=== PATIENT | female | born 1995 | race Caucasian/White ===

== ENCOUNTER → 2020-04-21 | Outpatient (CLI) | payer BC | END | disposition home or self-care (01) | LOC: LABWHC1 12:41 | PROVIDERS: ATTEND Emergency Medicine | DX: Z20.828 Contact with and (suspected) exposure to other viral communicable diseases (principal) | CPT/HCPCS: U0003; C9803 ==

== ENCOUNTER → 2020-07-20 | Outpatient (CLI) | payer BC | END | disposition home or self-care (01) | LOC: LABWHC1 13:00 | PROVIDERS: ATTEND Emergency Medicine | DX: Z20.822 Contact with and (suspected) exposure to COVID-19 (principal) | CPT/HCPCS: U0003; C9803 ==

== ENCOUNTER → 2020-08-13 | Outpatient (CLI) | payer BC | END | disposition home or self-care (01) | LOC: LABWHC1 15:56 | PROVIDERS: ATTEND Emergency Medicine | DX: Z20.822 Contact with and (suspected) exposure to COVID-19 (principal) | CPT/HCPCS: U0003; C9803 ==

== ENCOUNTER → 2020-08-19 | Outpatient (CLI) | payer BC ==
--- NOTE | 2020-08-19 17:00 | US ---
EXAMINATION TYPE: US OB<=14wk fetus twins/travag DATE OF EXAM: 08/19/2020 COMPARISON: NONE CLINICAL HISTORY: 24-year-old female O76 ABNORMAL OR ABSENT HEART TONES AT DOCTORS OFFICE. EXAM PERFORMED: Transvaginal (TV) and Transabdominal (TA) FINDINGS: EXAM MEASUREMENTS: GESTATIONAL AGE / DATING Physician Established: (11 weeks/3 days) EDC: 03/07/2021 Dates by LMP: (11 weeks/3 days) EDC: 03/07/2021 Dates by First Scan: No previous, this is first scan ( Dates by Current Scan for Baby A: (7 weeks/0 d ays) Dates by Current Scan for Baby B: (7 weeks/5 days) MATERNAL ANATOMY Uterus: 10.0 x 8.8 x 7.6 cm Right Ovary: 2.9 x 2.0 x 2.1 cm Left Ovary: Obscured by bowel gas. Post CDS / Adnexa: wnl Presence of free fluid: no Presence of corpus luteal cyst: no Presence of subchorionic bleed: no Presence of two separate gestational sacs: no No yolk sacs are identified. Suspect monochorionic diamnionic . ASSISTANT PROFESSOR OF SURGERY NOTES: GESTATION / SURVEY TWIN A CRL: 1.0 cm 7(wks0/days) Heart Rate No heart tones seen. IUP: Demise TWIN B CRL: 1.39 cm (7wks5/days) Heart Rate: No tones seen. IUP: Demise IMPRESSION: Twin gestations (suspect monochorionic diamniotic ). No yolk sac identified. Gestational age of 7 weeks 5 days and 7 weeks 0 days by CRL (discordant with age by LMP 11 weeks 3 days). Unable to identify heart tones. Color Doppler was also utilized. Findings highly suggestive of mavis se.
== END | disposition home or self-care (01) ==
LOC: RADUSWWP 16:09
PROVIDERS: ATTEND Obstetrics & Gynecology
DX: O76 Abnormality in fetal heart rate and rhythm complicating labor and delivery (principal); Z3A.01 Less than 8 weeks gestation of pregnancy
CPT/HCPCS: 76801; 76802; 76817

== ENCOUNTER 2020-08-23 05:36 | Day surgery (SDC) | payer BC ==
[2020-08-20 11:44] VITALS: BMI 27.3
[~2020-08-23 05:36] MED LIST: Pre Op ABX Message 1 EACH MISC MISCELLANE ONE
[2020-08-23] MEDS ORDERED: LACTATED RINGERS 1,000 ML IV ONE (06:13)
[2020-08-23] MEDS ORDERED: LIDOCAINE 1% (10MG/ML) FOR IV START INTRADERMA ONE (06:25)
[2020-08-23] MEDS ORDERED: ONDANSETRON 4 MG/2 ML VIAL ONE (06:26)
[2020-08-23] MEDS ORDERED: ONDANSETRON 4 MG/2 ML VIAL IVP ONE (06:28)
[2020-08-23] MEDS ORDERED: DEXAMETHASONE SOD PHOSPHATE 4 MG/ML 1 ML VIAL IVP ONE (06:29)
[2020-08-23] MEDS ORDERED: SCOPOLAMINE 1.5MG/72HR PATCH TRANSDERM ONE (06:29)
[2020-08-23 06:35] LABS: Basophils % (A) 0 %; Eosinophils # (A) 0.1 k/uL (0-0.7); Eosinophils % (A) 2 %; HGB 13.8 gm/dL (11.4-16.0); Lymphocytes # (A) 1.8 k/uL (1.0-4.8); Lymphocytes % (A) 28 %; MCH 31.6 pg (25.0-35.0); MCHC 33.6 g/dL (31.0-37.0); MCV 93.8 fL (80.0-100.0); Monocytes # (A) 0.2 k/uL (0-1.0); Monocytes % (A) 4 %; Neutrophils # (A) 4.3 k/uL (1.3-7.7); Neutrophils % (A) 65 %; Platelet Count 253 k/uL (150-450); RBC 4.37 m/uL (3.80-5.40); RDW 12.9 % (11.5-15.5); WBC 6.6 k/uL (3.8-10.6)
[2020-08-23] MEDS ORDERED: LIDOCAINE 1% INJ 10MG/ML (20 ML MDV) ONE (06:50)
[2020-08-23] MEDS ORDERED: METHYLERGONOVINE 0.2 MG/ML 1 ML AMP ONE (06:50)
[2020-08-23] MEDS ORDERED: MIDAZOLAM 2 MG/2 ML VIAL ONE (06:50)
[2020-08-23] MEDS ORDERED: PROPOFOL 10 MG/ML 20 ML VIAL IV ONE (06:50)
[2020-08-23] MEDS ORDERED: fentaNYL (PF) 50 MCG/ML 2 ML AMP ONE (06:50)
[2020-08-23 07:41] VITALS: RESP 16; TEMP 97.6
--- NOTE | 2020-08-23 07:43 | P.OP ---
Date of Procedure: 08/23/20 Preoperative Diagnosis: Missed AB, twin gestation, 11-4/7 weeks Postoperative Diagnosis: Same Procedure(s) Performed: Suction D&C Anesthesia: NICHOLEA Surgeon: Miriam Gilmore Estimated Blood Loss (ml): 200 IV fluids (ml): 400 Urine output (ml): 50 Pathology: other (Intrauterine contents) Condition: stable Disposition: PACU Operative Findings: Uterus sounded to 15 cm, anteverted anteflexed, adnexa negative bilaterally. Description of Procedure: Patient is brought to the operating suite where general anesthetic is administered without difficulty. She's placed in the dorsolithotomy position. The appropriate timeout was performed to assure proper patient and procedural identification. Antibiotics are not deemed necessary. Blood type is pending at time of this dictation. The cervix, vagina, perineal bodies are all prepped and draped in the usual sterile fashion. Bladder is drained for approximately 50 mL of clear yellow urine. Examination under anesthesia reveals an anteverted uterus of approximately 12-13 weeks' size. Weighted speculum was placed into the vagina. Anterior lip of the cervix is grasped with an Allis clamp. The cervix was gently and systematically dilated using Hanks dilators. A #9 curved curette is placed to the dome of the fundus and under appropriate suction pressures the uterus is curettaged thoroughly. A medium sharp curette is used to assure that the cavity is negative. The curved curet is once again placed, cavity is once again swept clean and is emptied of all tissues. Bleeding is slightly brisk, Methergine IM is given 1 with good results. Instrumentation is removed from the vagina. Uterus is massaged, firm and mobile. All sponge needle and instrument counts are correct. Patient is brought back to the recovery room in very good condition with stable vital signs, including a pulse of 88, 99% O2 saturation, blood pressure 119/46. Blood type is still pending, broke and will be given if Rh- status is found. Patient will follow-up with me in the office in 2 weeks. Postoperative instructions are given.
[2020-08-23] MEDS ORDERED: HYDROmorphone 0.5 MG/0.5 ML SYRINGE IVP ONE (08:06)
[2020-08-23 09:15] VITALS: BP 108/67; PULSE 83
== END 2020-08-23 09:30 | disposition home or self-care (01) ==
LOC: OR 05:36
PROVIDERS: ATTEND Obstetrics & Gynecology
DX: O02.1 Missed abortion (principal)
CPT/HCPCS: 86900; 86901; 88305; 85025; 86850; 59820; J2250; J1100; J2210; J2405; J2001; J3010; J2704; J1170

== ENCOUNTER → 2021-02-04 | Outpatient (CLI) | payer BC | END | disposition home or self-care (01) | LOC: LABWHC1 12:46 | PROVIDERS: ATTEND Obstetrics & Gynecology | DX: Z34.81 Encounter for supervision of other normal pregnancy, first trimester (principal); Z3A.00 Weeks of gestation of pregnancy not specified | CPT/HCPCS: 36415; 82950 ==

== ENCOUNTER 2021-08-23 04:00 | Inpatient (IN) | payer BC ==
[2021-08-23] MEDS ORDERED: OXYTOCIN 10 UNIT/ML 1 ML VIAL IM PRN (04:13)
[2021-08-23] MEDS ORDERED: TERBUTALINE 1 MG/ML VIAL SQ PRN (04:13)
[2021-08-23] MEDS ORDERED: METHYLERGONOVINE 0.2 MG/ML 1 ML AMP IM PRN (04:13)
[2021-08-23] MEDS ORDERED: CARBOPROST TROMETHAMINE 250 MCG/ML 1 ML AMP IM PRN (04:13)
[2021-08-23] MEDS ORDERED: LIDOCAINE 1% (PF) 10 MG/ML (30 ML SDV) SQ PRN (04:13)
[2021-08-23] MEDS ORDERED: OXYTOCIN 30 UNITS/500 ML NS 30 UNIT in SALINE 1 500ML.BAG IV SCH ×2 (04:15→21:30)
[2021-08-23] MEDS: LACTATED RINGERS 1,000 ML IV SCH ×4 (04:24→22:54)
[2021-08-23 05:27] LABS: Basophils % (A) 0 %; Eosinophils # (A) 0.1 k/uL (0-0.7); Eosinophils % (A) 1 %; HCT 36.2 % (34.0-46.0); Lymphocytes # (A) 1.6 k/uL (1.0-4.8); Lymphocytes % (A) 18 %; MCH 33.6 pg (25.0-35.0); MCHC 33.1 g/dL (31.0-37.0); MCV 101.3 fL (80.0-100.0); Macrocytosis Slight; Mean Platelet Volume 8.5; Monocytes # (A) 0.4 k/uL (0-1.0); Monocytes % (A) 5 %; Neutrophils # (A) 6.7 k/uL (1.3-7.7); Neutrophils % (A) 75 %; Platelet Count 190 k/uL (150-450); RBC 3.57 m/uL (3.80-5.40); RDW 13.5 % (11.5-15.5); WBC 8.9 k/uL (3.8-10.6)
--- NOTE | 2021-08-23 06:53 | P.HPOB ---
History of Present Illness H&P Date: 08/23/21 Chief Complaint: My water broke at 3:30 this morning This is a 25-year-old 2 para 0010 EDC 08/18/2021 at 40-5/7 weeks who was initially scheduled for induction this morning for postdates , but presented with spontaneous amniorrhexis at 0330 hours, clear fluid. She is having rare mild uterine contractions. Fetus is been active throughout the . Past surgical history significant for suction D&C for missed AB in 2020, breast reduction 2009. Current medications vitamins daily, baby aspirin daily. ALLERGIES none known. Past medical history significant for exercise-induced asthma. Family history significant for asthma. Social history patient has never been a smoker, she denies alcohol or drug use. She is , she works for a local [employer]. history is significant for blood type O+, rubella status immune. VDRL testing, hepatitis B surface antigen, group B strep cultures, gonorrhea and chlamydia cultures, urine culture negative. One-hour Glucola within normal limits. On exam patient is 5 foot 7 inches, 229 pounds, blood pressure 131/71. Vital signs are stable and she is afebrile. The general physical exam is within normal limits. Cervix is 2-3 cm dilated, 60% effaced, -2 station, vertex pre sentation. A small fore bag is ruptured for clear fluid. heart rate is consistent with reactive NST. Uterine contractions are occurring irregularly every 2-5 minutes apart of mild intensity. Impression: 40-5/7 weeks intrauterine , here for early spontaneous labor. All signs reassuring. Plan: Oxytocin augmentation has started. Analgesic options have been reviewed. Continue close maternal and surveillance. Anticipate normal spontaneous vaginal delivery. Review of Systems Constitutional: Reports as per HPI Past Medical History Past Medical History: Asthma Additional Past Medical History / Comment(s): sports induced asthma, miscarriage History of Any Multi-Drug Resistant Organisms: None Reported Past Surgical History: Breast Surgery Additional Past Surgical History / Comment(s): breast reduction, D&C Past Anesthesia/Blood Transfusion Reactions: No Reported Reaction Past Psychological History: No Psychological Hx Reported Smoking Status: Never smoker Past Alcohol Use History: Occasional Additional Past Alcohol Use History / Comment(s): not during Past Drug Use History: None Reported - Past Family History Mother Family Medical History: No Reported History Medications and Allergies Home Medications Medication Instructions Recorded Confirmed Type Pnv,Calcium 72/Iron/Folic Acid 1 each PO DAILY 08/20/20 08/23/21 History [ Plus Tablet] Allergies Allergy/AdvReac Type Severity Reaction Status Date / Time No Known Allergies Allergy Verified 08/23/21 04:11 Exam Vital Signs Temp Pulse Resp BP 08/23/21 04:11 97.6 F 86 17 131/71 Intake and Output 08/22/21 08/22/21 08/23/21 14:59 22:59 06:59 Other: # Voids 1 Weight 103.873 kg See dictation under HPI please Results Result Diagrams: 08/23/21 05:00 Abnormal Lab Results - Last 24 Hours (Table) 08/23/21 Range/Units 05:00 RBC 3.57 L (3.80-5.40) m/uL MCV 101.3 H (80.0-100.0) fL Assessment and Plan Assessment: 40-5/7 weeks intrauterine , scheduled for induction but here in spontaneous labor. All signs reassuring. Plan: Oxytocin augmentation per hospital protocol. Close maternal and surveillance. Analgesic options reviewed. Anticipate normal spontaneous vaginal delivery. Time with Patient: Less than 30
[2021-08-23] MEDS ORDERED: ROPIVACAINE 100 MG, fentaNYL (PF). 200 MCG in SODIUM CHLORIDE 0.9% 76 ML EPIDURAL ONE (10:00)
[2021-08-23] MEDS ORDERED: PENICILLIN G POTASSIUM 5,000,000 UNIT in DEXTROSE 5% IN WATER 100 ML IVPB STA ×2 (16:32)
[2021-08-23] MEDS ORDERED: PENICILLIN G POTASSIUM 2,500,000 UNIT in DEXTROSE 5% IN WATER 100 ML IVPB SCH ×4 (16:45→21:00)
[2021-08-23] MEDS ORDERED: CITRIC ACID-SODIUM CITRATE 15 ML CUP PO ONE (21:09)
[2021-08-23] MEDS ORDERED: diphenhydrAMINE 25 MG CAP PO PRN (21:25)
[2021-08-23] MEDS ORDERED: SIMETHICONE 80 MG CHEWABLE PO PRN (21:25)
[2021-08-23] MEDS ORDERED: NALOXONE 0.4 MG/ML 1 ML VIAL IV PRN (21:25)
[2021-08-23] MEDS ORDERED: diphenhydrAMINE 50 MG CAP PO PRN (21:25)
[2021-08-23] MEDS ORDERED: diphenhydrAMINE 50 MG/ML 1 ML VIAL IVP PRN ×2 (21:25)
[2021-08-23] MEDS ORDERED: ONDANSETRON 4 MG/2 ML VIAL IVP PRN (21:25)
[2021-08-23] MEDS ORDERED: METOCLOPRAMIDE 5 MG/ML 2 ML VIAL IVP PRN (21:25)
[2021-08-23] MEDS ORDERED: ZOLPIDEM 5 MG TAB PO PRN (21:25)
[2021-08-23 23:01] VITALS: RESP 16
[2021-08-24] MEDS: LACTATED RINGERS 1,000 ML IV SCH (01:20)
[2021-08-24] MEDS: ACETAMINOPHEN TAB 500 MG TAB PO SCH ×4 (02:42→18:24)
[2021-08-24] MEDS: KETOROLAC 15 MG/ML 1 ML VIAL IVP SCH ×3 (02:42→14:58)
[2021-08-24] MEDS: IBUPROFEN 600 MG TAB PO SCH ×2 (05:38→12:41)
[2021-08-24 07:14] LABS: Basophils % (A) 0 %; Eosinophils % (A) 0 %; HCT 31.6 % (34.0-46.0); HGB 10.6 gm/dL (11.4-16.0); Lymphocytes # (A) 1.2 k/uL (1.0-4.8); Lymphocytes % (A) 8 %; MCH 34.6 pg (25.0-35.0); MCHC 33.6 g/dL (31.0-37.0); MCV 103.2 fL (80.0-100.0); Macrocytosis Slight; Mean Platelet Volume 8.3; Monocytes # (A) 0.7 k/uL (0-1.0); Monocytes % (A) 5 %; Neutrophils # (A) 12.6 k/uL (1.3-7.7); Neutrophils % (A) 86 %; Platelet Count 196 k/uL (150-450); RBC 3.06 m/uL (3.80-5.40); RDW 14.2 % (11.5-15.5); WBC 14.7 k/uL (3.8-10.6)
--- NOTE | 2021-08-24 07:35 | P.PN ---
Progress Note - Text Progress Note Date: 08/24/21 (312) Anesthesia Postop day 1 Subjective: Status Post section with Duramorph. Patient seen and examined. Doing well without complaint. VAS 0. Denies nausea or vomiting. Mild pruritustolerable. Afebrile. Gross lower extremity strength intact. . Without apparent anesthetic complications. Objective: Vital signs reviewed Heart: Regular Rate Lungs: Good chest excursion Abdomen: Appears nondistended Assessment: Status post with Duramorph postop day 1 Plan: Continue current care with your medical management. Anticipated and the Duramorph around 9 PM tonight, you may see increased pain needs around this time.
[2021-08-24] MEDS: SENNOSIDES-DOCUSATE SODIUM 1 EACH TAB PO SCH ×2 (07:51→20:05)
--- NOTE | 2021-08-24 08:10 | P.OP ---
Date of Procedure: 08/23/21 Preoperative Diagnosis: 40-5/7 weeks intrauterine , meconium-stained fluid, arrest of descent in the second stage, nonreassuring heart tones. Postoperative Diagnosis: Same, right occiput transverse, nuchal cord 1, liveborn male infant Procedure(s) Performed: primary low transverse section Anesthesia: spinal Surgeon: Miriam Gilmore Rug Layer #1: Shona Tao Estimated Blood Loss (ml): 350 IV fluids (ml): 1,100 Urine output (ml): 100 Pathology: other (Placenta) Condition: stable Disposition: PACU Operative Findings: Liveborn male infant, scores 7 and 9, 8 lbs. 5 oz., 3800 g, nuchal cord 1, right occiput transverse arrest Description of Procedure: Patient arrived with spontaneous amniorrhexis which occurred at 033 hours, previously scheduled for induction for postdates. is remarkable for blood type O positive, rubella status immune, group B strep cultures negative. Please see my dictated history and physical for details. Oxytocin was started and titrated per hospital protocol. Epidural was placed. 12 hours after spontaneous amniorrhexis 5 million units of penicillin G was given. Patient progressed to completely dilated and began the second stage of labor. However after almost 2 hours of pushing no descent was noted, and at this time late decelerations were noted. Decision was made to proceed with primary low transverse section. Wall catheter is placed, vaginal prep done. 2 g of Ancef were given. Patient is placed in the dorsal supine position and the abdomen is prepped and draped in the usual sterile fashion after a spinal with Duramorph is placed. The appropriate timeout is performed to assure proper patient and procedural identification. Analgesia is checked and noted to be adequate. A low transverse skin incision is made in this is carried down through the subcutaneous tissue which is approximately 6 cm deep. Fascia is scored, isolated, extended bilaterally with curved Piedra scissors. Peritoneum is next identified and incised, there is no bowel or bladder involvement. The bladder blade is placed over the dome of the bladder and at all times the bladder is Well from the operative field to avoid bladder and/or ureteral injury. A low transverse uterine incision is made. This is carried down through the myometrium then extended bluntly. Meconium-stained fluid was encountered. 's head delivered in the right occiput transverse position. There was a nuchal cord 1 that was reduced. The oropharynx, nasopharynx, and external nares were then thoroughly bulb suctioned. Patient was officially delivered of a liveborn male infant at 2030 hours. Umbilical cord was doubly clamped and ligated, he was handed to waiting nurses for evaluation where scores of 7 and 9 at one and 5 minutes respectively were given. Placenta delivered manually, it was inspected, noted to be meconium-stained, but otherwise intact with trivascular cord. Uterus is then externalized and wiped clean with a sterile sponge to avoid any retained products of conception. It is massaged. Oxytocin is given. The bladder blade is placed over the dome of the bladder. The uterus is closed in a two-step fashion with 0 Vicryl suture. First layer is running locking, second layer is imbricated. Excellent reapproximation is noted. Bilateral tubes and ovaries appear normal to inspection. The abdomen is suctioned with suction on guard posterior to the uterus. The uterus is then gently placed back into the abdominal cavity. Bilateral gutters are inspected and cleaned. Uterine incision appears hemostatically intact, clean and dry. Peritoneum is allowed to close by secondary intention. Fascia is closed in a running stitch of 0 Vicryl with over ligation in the midline. Subcutaneous tissue is irrigated, clean and dry. 3-0 undyed Vicryl is used in a running fashion to reapproximate the subcutaneous tissue. 4-0 Monocryl is used for final skin closure in a subcuticular fashion. Steri-Strips and Mastisol are applied to the wound along with a dressing. Wall is noted to be draining clear urine. Total estimated blood loss 350 mL's. All sponge needle and enhancement counts are correct. Patient is brought back to recovery room in very good condition with stable vital signs.
--- NOTE | 2021-08-24 08:16 | P.PN ---
Subjective Progress Note Date: 08/24/21 Principal diagnosis: Post Operative day #1 Positive flatus. Pain well controlled. No complaints. Objective - Vital Signs Vital signs: Vital Signs Temp 98.0 F 08/24/21 07:58 Pulse 94 08/24/21 07:58 Resp 16 08/24/21 07:58 BP 97/59 08/24/21 07:58 Pulse Ox 97 08/24/21 07:58 Intake & Output 08/23/21 08/24/21 08/24/21 18:59 06:59 18:59 Intake Total 30 Output Total 300 950 Balance -300 -920 Intake: Intake, IV Titration 30 Amount Oxytocin 30 Units/500 ml 30 Ns 30 unit In Saline 1 500ml.bag @ Per Protocol IV .Q0M STELLA Rx#:[id number] Output: Urine 300 500 Uretheral (Wall) 300 Output, Quantitative 450 Blood Loss Other: # Voids 0 - Constitutional General appearance: Present: average body habitus, cooperative - Neck Neck: Present: normal ROM - Respiratory Respiratory: bilateral: CTA - Cardiovascular Rhythm: regular - Genitourinary Genitourinary Comment(s): Incision clean and dry, intact, Steri-Strips applied. Fundus firm, midline, symmetric, 18 week size. - Integumentary Integumentary: Present: normal - Neurologic Neurologic: Present: CNII-XII intact - Musculoskeletal Musculoskeletal: Present: gait normal, strength equal bilaterally - Psychiatric Psychiatric: Present: A&O x's 3, appropriate affect, intact judgment & insight - Labs CBC & Chem 7: 08/24/21 06:43 Labs: Abnormal Lab Results - Last 24 Hours (Table) 08/24/21 Range/Units 06:43 WBC 14.7 H (3.8-10.6) k/uL RBC 3.06 L (3.80-5.40) m/uL Hgb 10.6 L (11.4-16.0) gm/dL Hct 31.6 L (34.0-46.0) % MCV 103.2 H (80.0-100.0) fL Neutrophils # 12.6 H (1.3-7.7) k/uL Assessment and Plan Assessment: Doing well postoperative day #1 Plan: Continue postoperative care. Likely circumcision tomorrow morning. Anticipate discharge home tomorrow. Prescription for breast pump provided. Time with Patient: Less than 30
[2021-08-25] MEDS: KETOROLAC 15 MG/ML 1 ML VIAL IVP SCH (00:01)
--- NOTE | 2021-08-25 07:46 | P.DS ---
Providers Date of admission: 08/23/21 04:00 Expected date of discharge: 08/25/21 Attending physician: Miriam Gilmore Primary care physician: Stated None Hospital Course: This is a 25-year-old female 2 para 0010 EDC 08/18/2021 who presented at 40-5/7 weeks with spontaneous amniorrhexis, meconium-stained fluid. Blood type is O+, rubella status immune, group B strep cultures negative. Please see dictated history and physical for details. Patient ultimately became completely dilated and pushed for approximately 2 hours. 4 arrest of descent as well as nonreassuring heart tones, persistent late decelerations, the decision was made to proceed with primary low transverse section. She gave to a liveborn male with scores of 7 and 9 at one and 5 minutes respectively. He weighed 3800 g or 8 lbs. 6 oz. Estimated blood loss 350 mL's. Right occiput transverse position with a nuchal cord 1. Please see dictated operative note for details. This 20 the patient is doing well. She is voiding, ambulating, passing flatus without difficulty. Vital signs are stable and she is afebrile. Incision is clean and dry, intact, Steri-Strips applied. Vanlue is doing well, circumcision performed this morning. Patient is exhausted, otherwise is in good condition for discharge home. She has been given a prescription for a double electric breast pump which has been filled. She will see the databases computer consultant today prior to discharge. Assessment: Doing well second postoperative day Patient Condition at Discharge: Good Plan - Discharge Summary Discharge Rx Participant: No New Discharge Prescriptions: No Action Pnv,Calcium 72/Iron/Folic Acid [ Plus Tablet] 1 each PO DAILY Discharge Medication List Pnv,Calcium 72/Iron/Folic Acid [ Plus Tablet] 1 each PO DAILY 08/20/20 [History] Follow up Appointment(s)/Referral(s): Miriam Gilmore MD [STAFF PHYSICIAN] - 2 Weeks Discharge Disposition: HOME SELF-CARE
[2021-08-25] MEDS: IBUPROFEN 600 MG TAB PO SCH (08:17)
[2021-08-25 08:20] VITALS: BP 118/75; PULSE 99; TEMP 98.6
== END 2021-08-25 13:05 | disposition home or self-care (01) | DRG 788 ==
LOC: 4FBP 04:00
PROVIDERS: ADMIT Obstetrics & Gynecology; ATTEND Obstetrics & Gynecology
PROC: 10D00Z1 Extraction of Products of Conception, Low, Open Approach (ICD-10-PCS; principal; 2021-08-23 20:37)
PROC: 10907ZC Drainage of Amniotic Fluid, Therapeutic from Products of Conception, Via Natural or Artificial Opening (ICD-10-PCS; principal; 2021-08-23 20:37)
PROC: 4A0HXCZ Measurement of Products of Conception, Cardiac Rate, External Approach (ICD-10-PCS; principal; 2021-08-23 20:37)
PROC: 3E033VJ Introduction of Other Hormone into Peripheral Vein, Percutaneous Approach (ICD-10-PCS; principal; 2021-08-23 20:37)
DX: O32.4XX0 Maternal care for high head at term, not applicable or unspecified (principal); O69.81X0 Labor and delivery complicated by cord around neck, without compression, not applicable or unspecified; O62.1 Secondary uterine inertia; O76 Abnormality in fetal heart rate and rhythm complicating labor and delivery; O48.0 Post-term pregnancy; O77.0 Labor and delivery complicated by meconium in amniotic fluid; O99.52 Diseases of the respiratory system complicating childbirth; J45.909 Unspecified asthma, uncomplicated; Z37.0 Single live birth; Z3A.40 40 weeks gestation of pregnancy; L29.9 Pruritus, unspecified; O99.73 Diseases of the skin and subcutaneous tissue complicating the puerperium; Z87.59 Personal history of other complications of pregnancy, childbirth and the puerperium; Z79.82 Long term (current) use of aspirin; Z82.5 Family history of asthma and other chronic lower respiratory diseases
CPT/HCPCS: 85025; 86850; 86900; 86901; 88307

== ENCOUNTER 2021-08-27 01:21 | Emergency (ER) | payer BC ==
[2021-08-27 01:56] VITALS: RESP 18
[2021-08-27] MEDS ORDERED: SODIUM CHLORIDE 0.9% 1,000 ML IV STA (01:59)
[2021-08-27] MEDS ORDERED: KETOROLAC 15 MG/ML 1 ML VIAL IVP STA (01:59)
[2021-08-27] MEDS ORDERED: ONDANSETRON 4 MG/2 ML VIAL IVP STA (01:59)
--- NOTE | 2021-08-27 01:59 | ED ---
Abdominal Pain HPI - General Chief Complaint: Abdominal Pain Stated Complaint: Post-op abdominal pain Time Seen by Provider: 08/27/21 01:58 Source: patient, RN notes reviewed, old records reviewed Mode of arrival: ambulatory Limitations: no limitations - History of Present Illness Initial Comments: This is a 25-year-old female who is a coming in for not feeling well enough and dizziness lightheadedness, illness, cramping and aching of abdomen. Patient is a . Patient is able to ambulate but does states she is weak. No recent diarrheal illness. No fevers prior. Patient just felt warm enough to get documented temperature. Patient is postop day 5 of MD Complaint: abdominal pain () -: days(s) Location: epigastric Radiation: epigastric Migration to: L flank, R flank Severity scale (1-10): 4 Quality: cramping, aching Consistency: intermittent Improves With: nothing Worsens With: nothing Context: recent surgery/procedure (C Section) Associated Symptoms: nausea Treatments Prior to Arrival: other (none) - Related Data Home Medications Medication Instructions Recorded Confirmed Pnv,Calcium 72/Iron/Folic Acid 1 each PO DAILY 08/20/20 08/23/21 [ Plus Tablet] Allergies Allergy/AdvReac Type Severity Reaction Status Date / Time No Known Allergies Allergy Verified 08/27/21 01:27 Review of Systems ROS Statement: Those systems with pertinent positive or pertinent negative responses have been documented in the HPI. ROS Other: All systems not noted in ROS Statement are negative. Past Medical History Past Medical History: Asthma Additional Past Medical History / Comment(s): sports induced asthma, miscarriage History of Any Multi-Drug Resistant Organisms: None Reported Past Surgical History: Breast Surgery Additional Past Surgical History / Comment(s): breast reduction, D&C Past Anesthesia/Blood Transfusion Reactions: No Reported Reaction Past Psychological History: No Psychological Hx Reported Smoking Status: Never smoker Past Alcohol Use History: Occasional Past Drug Use History: None Reported - Past Family History Mother Family Medical History: No Reported History General Exam Limitations: no limitations General appearance: alert, in no apparent distress Head exam: Present: atraumatic, normocephalic, normal inspection Eye exam: Present: normal appearance, PERRL, EOMI. Absent: scleral icterus, conjunctival injection, periorbital swelling ENT exam: Present: normal exam, mucous membranes moist Neck exam: Present: normal inspection. Absent: tenderness, meningismus, lymphadenopathy Respiratory exam: Present: normal lung sounds bilaterally. Absent: respiratory distress, wheezes, rales, rhonchi, stridor Cardiovascular Exam: Present: regular rate, normal rhythm, normal heart sounds. Absent: systolic murmur, diastolic murmur, rubs, gallop, clicks GI/Abdominal exam: Present: soft, normal bowel sounds. Absent: distended, tenderness, guarding, rebound, rigid Extremities exam: Present: normal inspection, full ROM, normal capillary refill. Absent: tenderness, pedal edema, joint swelling, calf tenderness Back exam: Present: normal inspection Neurological exam: Present: alert, oriented X3, CN II-XII intact Psychiatric exam: Present: normal affect, normal mood Skin exam: Present: warm, dry, intact, normal color. Absent: rash Course Vital Signs 08/27/21 08/27/21 08/27/21 01:22 01:54 02:54 Temperature 99.4 F Pulse Rate 85 80 87 Respiratory 22 18 18 Rate Blood Pressure 143/91 136/83 118/64 O2 Sat by Pulse 98 98 98 Oximetry - Reevaluation(s) Reevaluation #1: 08/27/21 03:41 Medical record is reviewed Reevaluation #2: 08/27/21 04:12 Patient symptoms are improved here in the ER Reevaluation #3: 08/27/21 04:12 Patient informed of results and questions answered Medical Decision Making - Medical Decision Making 25 female DF for evaluation today. Patient has a for weakness nausea vomiting not feeling well during postop period of . Bilateral better with hydration nausea medications here in the ER not homicidal or suicidal patient can be discharged home does admit to start with baby being firstborn first baby - Lab Data Result diagrams: 08/27/21 02:07 08/27/21 02:07 Lab Results 08/27/21 08/27/21 08/27/21 Range/Units 02:07 02:07 02:07 WBC 6.8 (3.8-10.6) k/uL RBC 3.21 L (3.80-5.40) m/uL Hgb 10.9 L (11.4-16.0) gm/dL Hct 32.2 L (34.0-46.0) % MCV 100.4 H (80.0-100.0) fL MCH 33.9 (25.0-35.0) pg MCHC 33.8 (31.0-37.0) g/dL RDW 13.7 (11.5-15.5) % Plt Count 259 (150-450) k/uL MPV 8.7 Neutrophils % 71 % Lymphocytes % 18 % Monocytes % 5 % Eosinophils % 4 % Basophils % 0 % Neutrophils # 4.8 (1.3-7.7) k/uL Lymphocytes # 1.2 (1.0-4.8) k/uL Monocytes # 0.3 (0-1.0) k/uL Eosinophils # 0.2 (0-0.7) k/uL Basophils # 0.0 (0-0.2) k/uL Macrocytosis Slight Sodium 135 L (137-145) mmol/L Potassium 5.0 (3.5-5.1) mmol/L Chloride 110 H (98-107) mmol/L Carbon Dioxide 22 (22-30) mmol/L Anion Gap 3 mmol/L BUN 7 (7-17) mg/dL Creatinine 0.52 (0.52-1.04) mg/dL Est GFR (CKD-EPI)AfAm >90 (>60 ml/min/1.73 sqM) Est GFR (CKD-EPI)NonAf >90 (>60 ml/min/1.73 sqM) Glucose 82 (74-99) mg/dL Plasma Lactic Acid Josias (0.7-2.0) mmol/L Calcium 8.4 (8.4-10.2) mg/dL Total Bilirubin 1.3 (0.2-1.3) mg/dL AST 59 H (14-36) U/L ALT 26 (4-34) U/L Alkaline Phosphatase 74 (38-126) U/L Total Protein 6.3 (6.3-8.2) g/dL Albumin 3.0 L (3.5-5.0) g/dL Amylase 50 (30-110) U/L Lipase 38 (23-300) U/L Urine Color Light Yellow Urine Appearance Clear (Clear) Urine pH 7.0 (5.0-8.0) Ur Specific [place] 1.018 (1.001-1.035) Urine Protein Negative (Negative) Urine Glucose (UA) Negative (Negative) Urine Ketones Negative (Negative) Urine Blood Large H (Negative) Urine Nitrite Negative (Negative) Urine Bilirubin Negative (Negative) Urine Urobilinogen <2.0 (<2.0) mg/dL Ur Leukocyte Esterase Moderate H (Negative) Urine RBC 69 H (0-5) /hpf Urine WBC 52 H (0-5) /hpf Ur Squamous Epith Cells 2 (0-4) /hpf Urine Mucus Rare H (None) /hpf 08/27/21 Range/Units 02:07 WBC (3.8-10.6) k/uL RBC (3.80-5.40) m/uL Hgb (11.4-16.0) gm/dL Hct (34.0-46.0) % MCV (80.0-100.0) fL MCH (25.0-35.0) pg MCHC (31.0-37.0) g/dL RDW (11.5-15.5) % Plt Count (150-450) k/uL MPV Neutrophils % % Lymphocytes % % Monocytes % % Eosinophils % % Basophils % % Neutrophils # (1.3-7.7) k/uL Lymphocytes # (1.0-4.8) k/uL Monocytes # (0-1.0) k/uL Eosinophils # (0-0.7) k/uL Basophils # (0-0.2) k/uL Macrocytosis Sodium (137-145) mmol/L Potassium (3.5-5.1) mmol/L Chloride (98-107) mmol/L Carbon Dioxide (22-30) mmol/L Anion Gap mmol/L BUN (7-17) mg/dL Creatinine (0.52-1.04) mg/dL Est GFR (CKD-EPI)AfAm (>60 ml/min/1.73 sqM) Est GFR (CKD-EPI)NonAf (>60 ml/min/1.73 sqM) Glucose (74-99) mg/dL Plasma Lactic Acid Josias 1.0 (0.7-2.0) mmol/L Calcium (8.4-10.2) mg/dL Total Bilirubin (0.2-1.3) mg/dL AST (14-36) U/L ALT (4-34) U/L Alkaline Phosphatase (38-126) U/L Total Protein (6.3-8.2) g/dL Albumin (3.5-5.0) g/dL Amylase (30-110) U/L Lipase (23-300) U/L Urine Color Urine Appearance (Clear) Urine pH (5.0-8.0) Ur Specific [place] (1.001-1.035) Urine Protein (Negative) Urine Glucose (UA) (Negative) Urine Ketones (Negative) Urine Blood (Negative) Urine Nitrite (Negative) Urine Bilirubin (Negative) Urine Urobilinogen (<2.0) mg/dL Ur Leukocyte Esterase (Negative) Urine RBC (0-5) /hpf Urine WBC (0-5) /hpf Ur Squamous Epith Cells (0-4) /hpf Urine Mucus (None) /hpf - Radiology Data Radiology results: report reviewed, image reviewed Disposition Clinical Impression: Abdominal pain, Weakness, Nausea Disposition: HOME SELF-CARE Condition: Good Instructions (If sedation given, give patient instructions): Acute Nausea and Vomiting (ED) Is patient prescribed a controlled substance at d/c from ED?: No Referrals: None,Stated [Primary Care Provider] - 1-2 days
[2021-08-27 02:37] LABS: Basophils % (A) 0 %; Eosinophils # (A) 0.2 k/uL (0-0.7); Eosinophils % (A) 4 %; HCT 32.2 % (34.0-46.0); HGB 10.9 gm/dL (11.4-16.0); Lymphocytes # (A) 1.2 k/uL (1.0-4.8); Lymphocytes % (A) 18 %; MCH 33.9 pg (25.0-35.0); MCHC 33.8 g/dL (31.0-37.0); MCV 100.4 fL (80.0-100.0); Macrocytosis Slight; Mean Platelet Volume 8.7; Monocytes # (A) 0.3 k/uL (0-1.0); Monocytes % (A) 5 %; Neutrophils # (A) 4.8 k/uL (1.3-7.7); Neutrophils % (A) 71 %; Platelet Count 259 k/uL (150-450); RBC 3.21 m/uL (3.80-5.40); RDW 13.7 % (11.5-15.5); WBC 6.8 k/uL (3.8-10.6)
--- NOTE | 2021-08-27 02:52 | CT ---
EXAMINATION TYPE: CT abdomen pelvis w con DATE OF EXAM: 08/27/2021 COMPARISON: None HISTORY: Weakness and nausea. recent csection CT DLP: 1337.50 mGycm Automated exposure control for dose reduction was used. CONTRAST: Performed with IV Contrast, patient injected with 100 mL of Isovue 300. Images obtained from the diaphragm to the floor of the pelvis with IV contrast. Lung bases are clear. There is no pleural effusion. There is no pericardial effusion. Liver spleen stomach pancreas and gallbladder appear intact. Bile ducts are not dilated. There is no adrenal mass. Kidneys have normal size. There is no hydronephrosis. Appendix is posterior and appears normal. Ureters are not dilated. Bladder distends smoothly. Uterus is large related to r ecent . There is some hyperemia on the posterior wall of the uterine fundus consistent with site of the placenta. There is no pelvic mass. There is no free fluid in the pelvis. There is no mesenteric edema. There is no ascites or free air. There is no sign of a bowel obstructio n. There are a few air bubbles in the subcutaneous fat over the anterior lower abdomen from recent C- section. The lumbar vertebra have normal spacing and alignment. Posterior elements are intact. There is no com pression fracture. Bony pelvis is intact. Hip joints appear normal. IMPRESSION: No acute abnormality of the abdomen pelvis. Normal appendix.
[2021-08-27 03:43] LABS: ALT 26 U/L (4-34); AST 59 U/L (14-36); African American GFR (CKD) >90 (>60 ml/min/1.73 sqM); Alkaline Phosphatase 74 U/L (38-126); Amylase 50 U/L (30-110); Anion Gap 3 mmol/L; Blood Urea Nitrogen 7 mg/dL (7-17); Calcium 8.4 mg/dL (8.4-10.2); Carbon Dioxide 22 mmol/L (22-30); Chloride 110 mmol/L (98-107); Glucose 82 mg/dL (74-99); Lipase 38 U/L (23-300); Non-African American GFR(CKD) >90 (>60 ml/min/1.73 sqM); Sodium 135 mmol/L (137-145); Total Bilirubin 1.3 mg/dL (0.2-1.3); Total Protein 6.3 g/dL (6.3-8.2)
[2021-08-27 03:56] LABS: Appearance,Urine Clear (Clear); Bilirubin,Urine Negative (Negative); Blood,Urine Large (Negative); Color,Urine Light Yellow; Glucose,Urine (UA) Negative (Negative); Ketones,Urine Negative (Negative); Leukocyte Esterase,Urine Moderate (Negative); Mucus,Urine Rare /hpf; Nitrite,Urine Negative (Negative); Protein,Urine Negative (Negative); RBC,Urine 69 /hpf (0-5); Specific Gravity,Urine 1.018 (1.001-1.035); Squamous Epithelial Cell,Urine 2 /hpf (0-4); Urobilinogen,Urine <2.0 mg/dL (<2.0); WBC,Urine 52 /hpf (0-5)
[2021-08-27] MEDS ORDERED: ONDANSETRON 4 MG ODT STARTER PACK 2 TAB BTL PO STA (04:08)
[2021-08-27 04:17] VITALS: BP 110/65; PULSE 84; TEMP 98
== END 2021-08-27 04:17 | disposition home or self-care (01) ==
LOC: EC 01:21
DX: R10.13 Epigastric pain (principal); R53.1 Weakness; R11.2 Nausea with vomiting, unspecified; R42 Dizziness and giddiness; J45.909 Unspecified asthma, uncomplicated
CPT/HCPCS: 36415; 80053; 82150; 83605; 83690; 85025; 81001; 87086; 74177; 99285; 96374; 96375; 96361; J2405; J1885; S0119; Q9967

== ENCOUNTER → 2023-04-11 | Outpatient (CLI) | payer BC ==
[2023-04-11 21:09] LABS: HCT 40.6 % (37.2-46.3); HGB 13.2 d/dL (12.0-15.0); MCH 31.8 pg (27.0-32.0); MCHC 32.5 d/dL (32.0-37.0); MCV 97.8 FL (80.0-97.0); Mean Platelet Volume 10.8 FL (9.5-12.2); NRBC Per 100 WBC 0 X 10*3/uL (0.00-0.01); Platelet Count 242 X 10*3/uL (140-440); RBC 4.15 X 10*6/uL (4.10-5.20); RDW 13.1 % (11.5-14.5); WBC 5.96 X 10*3/uL (4.50-10.00)
== END | disposition home or self-care (01) ==
LOC: LABWHC1 11:56
PROVIDERS: ATTEND Obstetrics & Gynecology Obstetrics
DX: O20.0 Threatened abortion (principal); Z3A.00 Weeks of gestation of pregnancy not specified
CPT/HCPCS: 36415; 84144; 84702; 85027

== ENCOUNTER → 2023-04-13 | Outpatient (CLI) | payer BC | END | disposition home or self-care (01) | LOC: LABWHC1 11:28 | PROVIDERS: ATTEND Obstetrics & Gynecology Obstetrics | DX: O20.0 Threatened abortion (principal); Z3A.00 Weeks of gestation of pregnancy not specified | CPT/HCPCS: 36415; 84702 ==

== ENCOUNTER → 2023-04-20 | Outpatient (CLI) | payer BC | END | disposition home or self-care (01) | LOC: LABWHC1 11:27 | PROVIDERS: ATTEND Obstetrics & Gynecology Obstetrics | DX: O02.1 Missed abortion (principal); Z3A.00 Weeks of gestation of pregnancy not specified | CPT/HCPCS: 36415; 84702 ==

== ENCOUNTER → 2023-05-03 | Outpatient (CLI) | payer BC | END | disposition home or self-care (01) | LOC: LABWHC1 14:47 | PROVIDERS: ATTEND Obstetrics & Gynecology Obstetrics | DX: O03.4 Incomplete spontaneous abortion without complication (principal); Z3A.00 Weeks of gestation of pregnancy not specified | CPT/HCPCS: 36415; 84702 ==